=== PATIENT | female | born 1960 | race Two or more races ===

== ENCOUNTER 2022-08-27 05:15 | Day surgery (SDC) | payer OTHER ==
[~2022-08-27] VITALS: Ht 157.5 cm; Wt 70.3 kg
[~2022-08-27 05:15] MED LIST: CLONAZEPAM1 M1 PO; COZAAR50 MG PO; OMEPRAZOLE-BIC1 EAC1 PO; SYNTHROID50 MCG PO; SYNTHROID75 MCG PO
[2022-08-27] MEDS ORDERED: PERCOCET 5-3251 EACH PO (08:16)
== END 2022-08-27 12:05 | disposition home or self-care (01) ==
LOC: CIR.AMB 05:15
PROVIDERS: ATTEND Surgery
DX: K64.8 Other hemorrhoids (principal); K64.4 Residual hemorrhoidal skin tags; E03.9 Hypothyroidism, unspecified; E78.5 Hyperlipidemia, unspecified; I10 Essential (primary) hypertension; Z20.822 Contact with and (suspected) exposure to COVID-19

== ENCOUNTER 2024-04-26 12:30 | Inpatient (IN) | payer OTHER ==
[~2024-04-26] VITALS: Ht 157.5 cm; Wt 68.0 kg
[~2024-04-26 12:30] MED LIST changes: +PERCOCET 5-3251 EACH PO
[2024-04-26] MEDS ORDERED: PROTONIX40 MG PO (14:06)
[2024-05-05] MEDS ORDERED: BUPIVACAINE HCL 30 ML VIAL IJ ONE (10:15)
[2024-05-05] MEDS ORDERED: LIDOCAINE HCL 1%/EPINEPHRINE 20ML VIAL IJ ONE (10:15)
[2024-05-05] MEDS ORDERED: CEFTRIAXONE SODIUM 2,000 MG VIAL IV ONE (10:15)
[2024-05-05] MEDS ORDERED: METRONIDAZOLE/SODIUM CHLORIDE 500 MG/100 ML PIGGYBACK IV ONE (10:15)
[2024-05-05] MEDS ORDERED: METRONIDAZOLE/SODIUM CHLORIDE 500 MG/100 ML PIGGYBACK IV SCH (12:49)
[2024-05-05] MEDS ORDERED: TAMSULOSIN HCL 0.4 MG CAP PO SCH (12:49)
[2024-05-05] MEDS ORDERED: LACTOBACILLUS ACIDOPHILUS 1 CAP CAP PO SCH (12:50)
[2024-05-05] MEDS ORDERED: HYOSCYAMINE SULFATE 0.125 MG TAB.SUBL SL SCH (13:00)
[2024-05-05] MEDS ORDERED: MORPHINE SULFATE 4 MG/ML CARTRIDGE IV PRN (13:00)
[2024-05-05] MEDS ORDERED: ONDANSETRON HCL 2 MG/ML VIAL IV PRN (13:00)
[2024-05-05] MEDS ORDERED: RINGERS SOLUTION,LACTATED 1,000 ML IV SCH (13:00)
[2024-05-05] MEDS ORDERED: OxyCODONE HCL 5 MG TABLET (ROXICODONE) PO PRN (13:00)
[2024-05-05] MEDS ORDERED: GABAPENTIN 300 MG CAPSULE PO SCH (17:00)
[2024-05-05] MEDS ORDERED: CIPROFLOXACIN IN 5 % DEXTROSE 400 MG/200 ML PIGGYBAG IV SCH (17:00)
[2024-05-05] MEDS ORDERED: ACETAMINOPHEN 500 MG GEL..CAP PO SCH (18:00)
[2024-05-05] MEDS ORDERED: FAMOTIDINE/PF 20 MG/2 ML VIAL IV PUSH SCH (21:00)
[2024-05-05] MEDS ORDERED: ENALAPRILAT DIHYDRATE 1.25 MG/ML VIAL IV PRN (21:30)
[2024-05-06] MEDS ORDERED: LEVOTHYROXINE SODIUM 75 MCG TABLET PO SCH (06:00)
[2024-05-06 08:23] LABS: ALBUMIN 3.2 gm/dL (3.4-5.0); CALCIUM 8.4 mg/dL (8.5-10.1); CREATININE SERUM 0.84 mg/dL (0.55-1.02); GFR 68.48; PHOSPHOROUS 2.3 mg/dL (2.5-4.9); POTASSIUM 3.95 mEq/L (3.5-5.1)
[2024-05-06 08:25] LABS: HEMATOCRIT 28.7 % (36.0-45.00); HEMOGLOBIN 9.8 g/dL (12.0-15.00); MEAN CELL VOLUME 88.2 fL (80.00-100.00); PLATELET COUNT 222 K/uL (150-450); RED BLOOD COUNT 3.25 M/uL (4.00-6.00); RED CELL DISTRIBUTION WIDTH 13.6 % (11.5-14.5)
[2024-05-06 08:43] LABS: MAGNESIUM 1.6 mg/dL (1.8-2.4)
[2024-05-06] MEDS ORDERED: LOSARTAN POTASSIUM 50 MG TABLET PO SCH (09:00)
[2024-05-06] MEDS ORDERED: Cyanocobalamin/Mecobalamin 1 TAB.SL SL SCH (09:19)
[2024-05-06] MEDS ORDERED: SOD FERRIC GLUC COMPLX/SUCROSE 62.5 MG in 0.9 % SODIUM CHLORIDE 50 ML IV SCH (09:19)
[2024-05-06] MEDS ORDERED: AMINOCAPROIC ACID 250 MG/ML VIAL IV STA (10:34)
[2024-05-06] MEDS ORDERED: AMINOCAPROIC ACID 250 MG/ML VIAL IV SCH ×2 (10:45→12:30)
[2024-05-06] MEDS ORDERED: ENOXAPARIN SODIUM 40 MG/0.4 ML SYRINGE SUBCUTANEO SCH (17:00)
[2024-05-07 08:00] LABS: HEMATOCRIT 25.5 % (36.0-45.00); MEAN CELL VOLUME 89.7 fL (80.00-100.00); MEAN CORPUSCULAR HGB CONC 34.2 g/dl (32.0-36.0); PLATELET COUNT 185 K/uL (150-450); RED BLOOD COUNT 2.84 M/uL (4.00-6.00); RED CELL DISTRIBUTION WIDTH 13.6 % (11.5-14.5)
[2024-05-07 08:14] LABS: HEMOGLOBIN 8.7 g/dL (12.0-15.00); MEAN CORPUSCULAR HEMOGLOBIN 30.6 pg (27.00-32.0)
[2024-05-07 08:20] LABS: CALCIUM 8.6 mg/dL (8.5-10.1); CREATININE SERUM 0.71 mg/dL (0.55-1.02); GFR 83.14; MAGNESIUM 1.8 mg/dL (1.8-2.4); POTASSIUM 3.61 mEq/L (3.5-5.1)
[2024-05-07] MEDS ORDERED: ENOXAPARIN SODIUM 40 MG/0.4 ML SYRINGE SUBCUTANEO SCH (09:00)
[2024-05-07] MEDS ORDERED: POTASSIUM PHOS,M-BASIC-D-BASIC 3 MM/ML VIAL IV NR (09:15)
[2024-05-07] MEDS ORDERED: CHOLESTYRAMINE/ASPARTAME LIGHT 4 G/PKT PACKET PO SCH (13:00)
[2024-05-08 06:57] LABS: MEAN CELL VOLUME 88.4 fL (80.00-100.00); MEAN CORPUSCULAR HGB CONC 34.6 g/dl (32.0-36.0); PLATELET COUNT 194 K/uL (150-450); RED BLOOD COUNT 2.68 M/uL (4.00-6.00); RED CELL DISTRIBUTION WIDTH 13.6 % (11.5-14.5)
[2024-05-08 07:04] LABS: HEMATOCRIT 23.6 % (36.0-45.00); HEMOGLOBIN 8.2 g/dL (12.0-15.00); MEAN CORPUSCULAR HEMOGLOBIN 30.5 pg (27.00-32.0)
[2024-05-08] MEDS ORDERED: POTASSIUM PHOS,M-BASIC-D-BASIC 15 MM in 0.9 % SODIUM CHLORIDE 250 ML IV ONE (12:30)
[2024-05-08] MEDS ORDERED: FOLIC ACID 1 MG TABLET PO SCH (14:55)
[2024-05-09 07:12] LABS: HEMATOCRIT 24.3 % (36.0-45.00); MEAN CELL VOLUME 87.7 fL (80.00-100.00); MEAN CORPUSCULAR HGB CONC 34.2 g/dl (32.0-36.0); PLATELET COUNT 224 K/uL (150-450); RED BLOOD COUNT 2.78 M/uL (4.00-6.00); RED CELL DISTRIBUTION WIDTH 13.6 % (11.5-14.5)
[2024-05-09 07:13] LABS: HEMOGLOBIN 8.3 g/dL (12.0-15.00); MEAN CORPUSCULAR HEMOGLOBIN 29.8 pg (27.00-32.0)
== END 2024-05-09 23:27 | disposition home or self-care (01) | DRG 330 ==
LOC: O/R 05-05 06:15 → SURH 05-05 12:30
PROVIDERS: Internal Medicine Geriatric Medicine; Surgery; ADMIT Surgery; ATTEND Surgery
PROC: 0DBP4ZZ Excision of Rectum, Percutaneous Endoscopic Approach (ICD-10-PCS; 2024-05-05)
PROC: 0DTN4ZZ Resection of Sigmoid Colon, Percutaneous Endoscopic Approach (ICD-10-PCS; principal; 2024-05-05 15:00)
DX: K57.30 Diverticulosis of large intestine without perforation or abscess without bleeding (principal); K62.5 Hemorrhage of anus and rectum; N32.1 Vesicointestinal fistula; K60.1 Chronic anal fissure; K59.09 Other constipation; K64.2 Third degree hemorrhoids; K64.5 Perianal venous thrombosis; N73.6 Female pelvic peritoneal adhesions (postinfective); I11.9 Hypertensive heart disease without heart failure

== ENCOUNTER → 2025-08-30 | Day surgery (SDC) | payer OTHER ==
[2025-08-21 12:43] VITALS: BP 114/76
[~2025-08-30] VITALS: Ht 160 cm; Wt 74.8 kg
[~2025-08-30] MED LIST changes: +BUPIVACAINE HCL 30 ML VIAL IJ ONE; +CEFTRIAXONE SODIUM 2,000 MG VIAL IV ONE; +CEFTRIAXONE SODIUM 2,000 MG VIAL ONE; +DIBUCAINE 30 GM TUBE ONE; +DIBUCAINE 30 GM TUBE RECTAL ONE; +HEMOSTATIC MATRIX 1 KIT KIT TOP ONE; +LIDOCAINE HCL 1%/EPINEPHRINE 20ML VIAL IJ ONE; +METRONIDAZOLE/SODIUM CHLORIDE 500 MG/100 ML PIGGYBACK IV ONE; +OXYCODONE HCL5 MG PO; +POVIDONE-IODINE 118 ML BOTT TOP ONE; +PROTONIX40 MG PO; +TAMSULOSIN HCL 0.4 MG CAP PO ONE; +TRAMADOL HCL50 MG PO
== END | disposition home or self-care (01) ==
LOC: ADM 08-20 11:30 → CIR.AMB 08:45
PROVIDERS: ATTEND Surgery
DX: K60.1 Chronic anal fissure (principal); K62.89 Other specified diseases of anus and rectum; K62.4 Stenosis of anus and rectum; Z88.2 Allergy status to sulfonamides; Z88.5 Allergy status to narcotic agent